=== PATIENT | male | born 1965 | race Caucasian/White ===

== ENCOUNTER 2017-02-15 09:45 | Day surgery (SDC) | payer OTHER ==
[~2017-02-15] VITALS: Ht 180.3 cm; Wt 108.9 kg
[~2017-02-15 09:45] MED LIST: ARIP10TA14 PO; ATRV10T PO; DIVA500T6 PO; GLPZ5T PO; HYDR25TA4 PO; Lactated Ringer's 1,000 ML IV ONE; MetoCLOpramide 5 mg/mL 2 mL Inj IVPUSH PRN; OMEP20CA11 PO; Ondansetron 2 mg/mL 2 mL Inj IVPUSH PRN; TERA5CAP6 PO; TRAZ-118 PO; VENL75TA3 PO
[2017-02-15] MEDS ORDERED: Propofol 10,000 mCg/mL 20 mL Inj ONE (09:46)
[2017-02-15 10:44] VITALS: BP 128/82; PULSE 65; RESP 14; O2SAT 94
--- NOTE | 2017-02-15 11:38 | PCM.HPANE ---
Patient Data Surgeon Admitting Provider: Attending Provider:Chelsi Senior MD Primary Care Physician:Katie Osuna MD Other Provider:Roxana Nunez Anesthesia Reason for Visit Generalized Abdominal Pain, Gerd Ht/WT & BMI Height (Feet): 5 Height (Inches): 11 Weight (Kilograms): 108.896 Body Mass Index 33.00 Allergies Coded Allergies: No Known Drug Allergies (Verified Allergy, Unknown, 02/13/17) Past Anesthesia History Anesthesia History: Denies:: Abnormal Airway, Anesthesia Reactions, Difficult Intubation, Fam Anesthesia Reaction, Fam Malignant Hypertherm, Malignant Hyperthermia Diabetes History Hx Diabetes?: Yes Current Bedside Blood Glucose: 118 MRSA MRSA: No Medications Home Meds Incl Beta Daryn: No Reported Medications Venlafaxine 75 Mg Orathm29 Mg PO DAILY Ref 0 02/13/17 Trazodone 100 Mg Wmdffq007 Mg PO HS Ref 0 02/13/17 Terazosin 5 Mg Capsule5 Mg PO HS Ref 0 02/13/17 Omeprazole 20 Mg Capsule.dr20 Mg PO DAILY Ref 0 02/13/17 Hydrochlorothiazide 25 Mg Ahdopx80 Mg PO DAILY 30 Days Ref 0 02/13/17 Glipizide 5 Mg Tablet5 Mg PO DAILY 30 Days 02/13/17 Divalproex 500 Mg Tablet.dr500 Mg PO BID Ref 0 Swallowed whole without chewing to avoid local irritation of the mouth and throat. 02/13/17 Atorvastatin (Lipitor)10 Mg Tab10 Mg PO DAILY Ref 0 02/13/17 Aripiprazole (Abilify)10 Mg Wpwjod98 Mg PO DAILY Ref 0 02/13/17 Last Time Dose Received No meds taken today History History of ENT Problems?: No HEENT History: Denies:: Abnormal Airway Difficult Intubation Dysphagia Hearing Problem Denture Type: None Teeth Condition: Within Normal Limits Hx of Heart Problems?: Yes Cardiovascular History: Positive for:: Hypertension Denies:: AICD Atrial Fibrillation Chest Pain Pacemaker Valvular Heart Disease Hx of Respiratory Problem?: Yes Respiratory History: Denies:: Asthma COPD Chest Surgery Cough Dyspnea Emphysema Hemoptysis Oxygen Administration Pneumonia Pulmonary Embolism Tuberculosis Use of C-PAP Machine Use of Inhalers / NEBS Other History/Comment ETHEL - does not use CPAP Hx Neurologic Problems?: No Neurological History: Denies:: CVA Hx of GI Problems?: Yes Other History/Comment abdominal pain Hx of Problems?: No Hx Musculoskeletal Problems?: Yes Musculoskeletal History: Denies:: Fibromyalgia Joint Replacement Other History/Comment OA Psycho Social History: Positive for:: Hx Depression Denies:: Anxiety Hx Surgeries?: Yes (R KNEE ARTHO X2, R ROTATOR, CERVICAL FUSION, ) Hx Any Other Health Problems?: Yes Hx Diabetes: YesBedside Blood Glucose: 118 Hx Alcohol Use: No Stop/Bang Treated for Sleep Apnea?: Yes Do You Have a CPAP Machine?: No (NON-COMPLIANT WITH NIGHTLY USE) Risk Assessment Category Category 1A: Patient has history of documented sleep apnea, and HAS NOT received any narcotic, sedative or anesthesia administration during this stay. Category 1B: Patient has history of documented sleep apnea, and HAS received any narcotic , sedative or anesthesia administration during this stay Category 2: Patient has SUSPECTED Obstructive Sleep Apnea, and HAS received any narcotic , sedative or anesthesia administration during this stay. Category 3: Patient has SUSPECTED Obstructive Sleep Apnea and HAS NOT received narcotic, sedative or anesthesia administration during this stay. Category 4: Outpatient in Procedural Areas with known sleep apnea or who screen positive for High Risk via the STOP/BANG questionnaire. Exam Exam Vital Signs Vital Signs Date Time Temp Pulse Resp B/P Pulse Ox O2 Delivery O2 Flow Rate FiO2 02/15/17 10:44 36.3 65 14 128/82 94 Room Air General Appearance: Alert, Oriented X3 HEENT/AIRWAY: MP 3, Neck Movement (Stiff neck movement) Lungs: Clear to Auscultation, Clear to Percussion Heart: Exam Unremarkable, Regular Rate/Rhythm Meds/Labs/Diagnostics Bedside Blood Glucose: 118 Plan Impression Patient chart reviewed, patient interviewed and anesthestic plan with risks, benefits, and alternatives discussed, and informed consent obtained. ASA Physical Status: ASA3 Severe Disease Anesthetic Plan: MAC Bene/Risks/Altern/Consents: Yes HP Complete Prior to Induction: Yes Ney Hinojosa MD Feb 15, 2017 11:35
[2017-02-15] MEDS: Lactated Ringer's 1,000 ML IV SCH ×2 (11:46→12:06)
[2017-02-15 12:21] VITALS: BP 125/64; PULSE 69; RESP 12; O2SAT 96
--- NOTE | 2017-02-15 12:21 | PCM.ANEP1 ---
Post Anesthesia PACU Phase 1 Assessment Vital Signs Vital Signs Date Time Temp Pulse Resp B/P Pulse Ox O2 Delivery O2 Flow Rate FiO2 02/15/17 10:44 36.3 65 14 128/82 94 Room Air Anesthetic Administered: MAC Level of Alertness: Awake, talking NAVA's with Equal Strength: Yes Pain: No Nausea or Vomiting: No CV Function & Hydration Stable: Yes Airway Device: Lungs: Clear to Auscultation, Clear to Percussion PACU Phase 2 Assessment Complications: No Follow up Care: No Patient Instructions Provided: N/A Comments See anesth record for PACU VS. PACU VSS Ney Hinojosa MD Feb 15, 2017 12:21
[2017-02-15 12:35] VITALS: BP 115/60; PULSE 68; RESP 12; O2SAT 94
[2017-02-15 12:41] VITALS: BP 97/79; PULSE 65; RESP 16; O2SAT 99
--- NOTE | 2017-02-15 13:45 | ENDO ---
[address] [address] ENDOSCOPY PROCEDURE PATIENT: SHINE HURTADO : 1965 MR#: [id number] ADMIT: 02/15/2017 JOB ID: [id number] PROCEDURE: Esophagogastroduodenoscopy (EGD). INDICATION: Gastroesophageal reflux. ANESTHESIA: Patient's ASA classification, Mallampati score, and medications per Dr. Ney Hinojosa's anesthesia note. INSTRUMENT USED: GIF H 180 J. PROCEDURE DETAILS: After informed consent was obtained, the patient was brought into the gastrointestinal suite where he was placed on oxygen via nasal cannula and monitored with continuous pulse oximeter, telemetry, and blood pressure monitoring. A time-out was performed, then he was placed in the left lateral decubitus position and medications were administered for sedation. A bite block was placed. The standard esophagogastroduodenoscopy scope was inserted through the bite block and advanced under direct visualization to the second portion of duodenum without difficulty. FINDINGS: 1. Normal appearing duodenal bulb, first and second portion. 2. Normal-appearing pylorus. In the antrum there were two polyps that were 3-4 mm each. Both polyps removed with cold biopsy forceps. 3. In the gastric body there were multiple additional polyps that ranged in size from 3-4 mm to approximately 8 mm. Appearance of these polyps was consistent with fundic gland polyps. The largest polyp was biopsied. 4. Retroflexed views in the gastric body revealed a normal-appearing cardia and fundus. 5. Normal appearing GE junction with a regular Z-line at 43 cm. 6. Normal appearing esophagus. IMPRESSION: Multiple gastric polyps. Otherwise normal exam to the second portion of the duodenum. RECOMMENDATIONS: 1. Await biopsy results. 2. Continue PPI. 3. Proceed to colonoscopy. PROCEDURE: Colonoscopy. INDICATION: Abdominal pain. ANESTHESIA: Please see above for ASA classification, Mallampati score, and medications. INSTRUMENT USED: PCF H 190 DL PREPARATION QUALITY: Fair. PROCEDURE DETAILS: After completion of the EGD exam the patient was turned and then a digital rectal exam was performed which was unremarkable. The colonoscope was then inserted into the rectum and advanced under direct visualization to the cecum, which was identified by the presence of the ileocecal valve and appendiceal orifice. Once the cecum was reached, the colonoscope was withdrawn back into the rectum as the mucosa and lumen were examined. In the rectum, retroflexion was performed. Following retroflexion, the remaining air in the rectum was suctioned and the procedure was completed. FINDINGS: In the sigmoid colon there was a diminutive polyp that was removed cold biopsy forceps. Otherwise normal exam from rectum to cecum. IMPRESSION: Sigmoid colon polyp. RECOMMENDATIONS: Repeat colonoscopy pending polyp pathology results. COMPLICATIONS: None. ESTIMATED BLOOD LOSS: Less than 5 mL.
--- NOTE | 2017-02-21 17:42 | PATH ---
SURGICAL PATHOLOGY Attending Physician:Volodymyr Hart CASE STATUS: Signed Out PATIENT NAME: SHINE HURTADO PID: [id number] : 1965 DATE COLLECTED:02/15/2017 20:04 SPECIMEN: 1: Duodenum, Biopsy 2: Gastric, Biopsy 3: Stomach, Antrum, Biopsy 4: Stomach, Polyp, Biopsy 5: Colon, Polyp CLINICAL HISTORY: 1). DUODENUM BIOPSY 2). GASTRIC BIOPSY, RULE OUT H PYLORI 3). ANTRUM POLYPS (RULE OUT H PYLORI) 4). GASTRIC BODY POLYPS (RULE OUT H PYLORI) 5). SIGMOID COLON POLYP FINAL DIAGNOSIS: 1. Duodenum, Biopsy: Duodenal mucosa with no diagnostic abnormality. Negative for active inflammation, features of sprue, dysplasia or malignancy. 2. Stomach, Biopsy: Gastric antral and body mucosa with mild chronic gastritis. Negative for Helicobacter organisms by immunohistochemistry. Negative for intestinal metaplasia, dysplasia or malignancy. 3. Antral Polyps, Biopsies: Gastric antral mucosa with chronic gastritis and features of hyperplastic gastric polyps. Helicobacter organisms not identified. Negative for intestinal metaplasia, dysplasia or malignancy. 4. Gastric Body Polyps, Biopsies: Fundic gland polyp x2. Negative for intestinal metaplasia, dysplasia, and malignancy. 5. Sigmoid Colon Polyp, Biopsy: Hyperplastic polyp. ICD10: R10.13 D12.5 GROSS DESCRIPTION: The specimen is received in five formalin filled containers labeled with the patient's name. 1). The specimen is labeled "duodenum" and consists of 2 portions of tissue which aggregate to 0.2 x 0.2 x 0.2 CM. The specimen is entirely submitted in cassette 1A. 2). The specimen is labeled "gastric biopsy" and consists of 2 portions of tissue which aggregate to 0.3 x 0.3 x 0.3 CM. The specimen is entirely submitted in cassette 2A. 3). The specimen is labeled "antrum polyps" and consists of 4 portions of tissue which aggregate to 0.3 x 0.2 x 0.2 CM the specimen is entirely submitted in cassette 3A. 4). The specimen is labeled "gastric body polyps" and consists of 2 portions of tissue which aggregate to 0.2 x 0.2 x 0.2 CM. The specimen is entirely submitted in cassette 4A. 5). The specimen is labeled "sigmoid colon polyp" and consists of a 0.3 x 0.3 x 0.3 CM portion of tissue which is entirely submitted in cassette 5A. 02/15/2017AZ MICRO DESCRIPTION: Part 2: An immunohistochemical stain was performed to evaluate for Helicobacter organisms and is negative. The control stain shows appropriate reactivity. * This test was developed and its performance characteristics determined by [facility]. It has not been cleared or approved by the U.S. Food and Drug Administration. The FDA has determined that such clearance or approval is not necessary. This test is used for clinical purposes. It should not be regarded as investigational or for research. ICD-9 CODES: CPT CODES: 1: 98059 2: 89571, 22011 3: 33291 4: 32938 5: 18214 Electronically Signed Out Kranthi Dumont MD, Ph.D. [facility] [address], [place] [address] Technical component performed at [facility], [address], [place], [address]
== END 2017-02-15 23:59 | disposition home or self-care (01) ==
LOC: END 09:45
PROVIDERS: ATTEND Internal Medicine Gastroenterology
DX: R10.84 Generalized abdominal pain (principal); K63.5 Polyp of colon; K29.50 Unspecified chronic gastritis without bleeding; K31.7 Polyp of stomach and duodenum; K21.9 Gastro-esophageal reflux disease without esophagitis; I10 Essential (primary) hypertension; E78.5 Hyperlipidemia, unspecified; G47.30 Sleep apnea, unspecified; N40.0 Benign prostatic hyperplasia without lower urinary tract symptoms; F31.9 Bipolar disorder, unspecified
CPT/HCPCS: 43239; 45380; J2704; J7120